=== PATIENT | male | born 1940 | race Caucasian/White ===

== ENCOUNTER 2022-02-17 22:19 | Inpatient (IN) | payer MEDICARE ==
[~2022-02-17] VITALS: Ht 175.3 cm; Wt 65.9 kg
[2022-02-17 22:48] LABS: BASOPHIL 0.8 % (0-2); EOSINOPHIL 1.5 % (0-7); HCT 44.2 % (42.0-52.0); HGB 14.7 g/dl (13.2-18.0); LYMPHOCYTE 28.1 % (15-48); MCH 30.4 pg (25.0-31.0); MCHC 33.3 g/dL (32.0-36.0); MCV 91.5 fL (78.0-100.0); MPV 10.1 fL (6.0-9.5); NEUTROPHIL 62.1 % (41-80); NRBC 0; PLT 199 K/uL (150-400); RBC 4.83 M/uL (4.70-6.00); RDW 13.2 % (11.5-14.0); WBC 14.4 K/uL (4.0-10.5)
[2022-02-17 22:53] LABS: INR 0.98 (0.9-1.2); PROTHROMBIN TIME 12.7 SECONDS (11.9-13.9); PTT 26.4 SECONDS (24.9-34.6)
[2022-02-17 23:05] LABS: ALBUMIN 3.9 g/dL (3.4-5.0); BILIRUBIN - TOTAL 0.6 mg/dL (0.2-1.0); BUN/CREAT RATIO (CALC) 17.2 RATIO; CREATININE 0.99 mg/dL (0.67-1.17); GLOBULIN (CALCULATION) 3.7 g/dL; MAGNESIUM 2.2 mg/dL (1.8-2.4); TOTAL PROTEIN 7.6 g/dL (6.4-8.2)
[2022-02-18 01:55] LABS: CORONAVIRUS 2019 SARS-COV-2 NEGATIVE (NEGATIVE)
[2022-02-18 02:34] LABS: INFLUENZA A NAA NEGATIVE (NEGATIVE)
[2022-02-18] MEDS ORDERED: BACLOFEN 10MG T10 MG PO (03:02)
[2022-02-18] MEDS ORDERED: SYMBICORT 80-10.2 GM INH (03:02)
[2022-02-18] MEDS ORDERED: ASPIRIN EC81 MG PO (03:03)
[2022-02-18 06:10] LABS: HCT 39.3 % (42.0-52.0); HGB 12.9 g/dl (13.2-18.0); MCH 30.4 pg (25.0-31.0); MCHC 32.8 g/dL (32.0-36.0); MCV 92.7 fL (78.0-100.0); MPV 10.4 fL (6.0-9.5); RBC 4.24 M/uL (4.70-6.00); RDW 13.2 % (11.5-14.0); WBC 8.8 K/uL (4.0-10.5)
[2022-02-18 06:39] LABS: BUN/CREAT RATIO (CALC) 17.6 RATIO; CREATININE 0.91 mg/dL (0.67-1.17); POTASSIUM 3.7 mmol/L (3.5-5.1)
[2022-02-18 07:06] LABS: BILIRUBIN NEGATIVE (NEGATIVE); BLOOD NEGATIVE Ery/uL (NEGATIVE); CLARITY CLEAR (CLEAR); COLOR YELLOW (YELLOW); GLUCOSE (U) NORMAL (NORMAL); LEUKOCYTES NEGATIVE Leu/uL (NEGATIVE); NITRITE NEGATIVE (NEGATIVE); PROTEIN NEGATIVE (NEGATIVE); SPECIFIC GRAVITY 1.015 (1.001-1.030); UROBILINOGEN 0.2 mg/dL (0.2-1.0)
--- NOTE | 2022-02-18 13:23 | NUR ---
02/18/22 Mr. Melendez lives at home with his spouse in a 2 bedroom mobile home. Their rent recently was raised from $500 - to $650.00. Mr. Melendez was not interested in a list of subsidized rent apartments because they have a pool and swingset in the backyard for thheir 6 grandchildren. - They are receiving $20.00 in foodstamps and are hopeful that they will received an increase with the raise in rent. Mr. Melendez is familiar with [employer] and financial community resources. - He has a PCP, 02 at 2 L ([facility]), portable tank, rollator and cane. - Ms. Melendez drives for the couple and manages the household. - Will monitor for discharge planning needs.
--- NOTE | 2022-02-19 01:43 | NUR ---
LATE ENTRY 0000 NO TIDALING NOTED TO CHEST TUBE, SANGIUNOUS DRAINAGE NOTED IN TUBE, CHEST TUBE AT 18CM. BREATH SOUNDS DIMINISHED ON LEFT SIDE. NO SOA, O2 SAT 97%, PT STATES IS MILDLY UNCOMFORTABLE. ROBERT OCHOA NOTIEFIED, NO ORDERS AT THIS TIME
[2022-02-19 07:03] LABS: BASOPHIL 0.2 % (0-2); EOSINOPHIL 0 % (0-7); HCT 33.1 % (42.0-52.0); HGB 11.1 g/dl (13.2-18.0); LYMPHOCYTE 6.4 % (15-48); MCH 30.6 pg (25.0-31.0); MCHC 33.5 g/dL (32.0-36.0); MCV 91.2 fL (78.0-100.0); MONOCYTE 3.5 % (0-12); MPV 10.6 fL (6.0-9.5); NEUTROPHIL 89.4 % (41-80); NRBC 0; PLT 143 K/uL (150-400); RBC 3.63 M/uL (4.70-6.00); RDW 13.1 % (11.5-14.0); WBC 13.3 K/uL (4.0-10.5)
[2022-02-19 07:38] LABS: BUN/CREAT RATIO (CALC) 28.2 RATIO; C-REACTIVE PROTEIN 0.2 mg/dL (<=0.90); CREATININE 0.85 mg/dL (0.67-1.17); MAGNESIUM 2.1 mg/dL (1.8-2.4); POTASSIUM 4.6 mmol/L (3.5-5.1)
--- NOTE | 2022-02-19 14:44 | NUR ---
02/19/22 Mr. Melendez reported to be having difficulty getting his 02 from [facility] since his insurance changed. Gladis at [facility] reports to have received updated qualifications from his PCP. His 02 has been billed to the insurance comapny. [facility] reports the problems to have been resolved.
[2022-02-20 07:16] LABS: BASOPHIL 0.1 % (0-2); EOSINOPHIL 0.1 % (0-7); HCT 31.1 % (42.0-52.0); HGB 10.5 g/dl (13.2-18.0); LYMPHOCYTE 11.4 % (15-48); MCH 30.6 pg (25.0-31.0); MCHC 33.8 g/dL (32.0-36.0); MCV 90.7 fL (78.0-100.0); MONOCYTE 5.2 % (0-12); MPV 10.2 fL (6.0-9.5); NEUTROPHIL 82.6 % (41-80); NRBC 0; PLT 153 K/uL (150-400); RBC 3.43 M/uL (4.70-6.00); RDW 13.1 % (11.5-14.0); WBC 11.4 K/uL (4.0-10.5)
[2022-02-20 07:41] LABS: BUN/CREAT RATIO (CALC) 33.7 RATIO; CREATININE 0.86 mg/dL (0.67-1.17); POTASSIUM 4.4 mmol/L (3.5-5.1)
[2022-02-21 07:09] LABS: BASOPHIL 0.3 % (0-2); EOSINOPHIL 0.7 % (0-7); HCT 35.3 % (42.0-52.0); HGB 11.6 g/dl (13.2-18.0); LYMPHOCYTE 17.7 % (15-48); MCH 30.6 pg (25.0-31.0); MCHC 32.9 g/dL (32.0-36.0); MCV 93.1 fL (78.0-100.0); MONOCYTE 7.8 % (0-12); MPV 10.5 fL (6.0-9.5); NEUTROPHIL 72.6 % (41-80); NRBC 0; PLT 153 K/uL (150-400); RBC 3.79 M/uL (4.70-6.00); RDW 13.3 % (11.5-14.0); RETICULOCYTE COUNT 2.6 % (1.0-2.0); WBC 9.8 K/uL (4.0-10.5)
[2022-02-21 07:22] LABS: IRON % SATURATION 39.2 %SAT (20-50)
[2022-02-21 07:57] LABS: CREATININE 0.87 mg/dL (0.67-1.17); FOLIC ACID (SERUM) 5.2 ng/mL (8.6-58.9); MAGNESIUM 2.1 mg/dL (1.8-2.4); PHOSPHORUS 3.4 mg/dL (2.6-4.7); POTASSIUM 4.1 mmol/L (3.5-5.1)
--- NOTE | 2022-02-21 14:49 | NUR ---
PATIENT TURNED IN BED TO GET STRAIGHT TO ATTEMPT TO SIT UP IN CHAIR, SHORTLY AFTER THIS HR 160'S ST, AUSCULTATED RACING HEART RATE FOR SHORT PERIOD THEN RETURNED TO NORMAL RATE AND RHYTHM, MONITORS CUT OFF FOR A BIT AND DURING THIS TIME WAS PUT ON TELEMON TO MONITOR DURING THIS TIME. RETURN TO NSR ON OWM. NOTIFIED AND ASSESSED. WILL HOLD ON GETTING PATIENT OOB AT THIS TIME
[2022-02-21] MEDS ORDERED: DUONEB 2.5-0.5M1 AMP NEB (17:23)
[2022-02-21] MEDS ORDERED: NEBULIZER UNIT NEB (17:23)
== END 2022-02-21 18:08 | disposition home or self-care (01) | DRG 199 ==
LOC: FER 22:19 → FTCU 02-18 01:21
PROVIDERS: Internal Medicine; Nurse Practitioner Acute Care; ADMIT Internal Medicine
PROC: 0W9B30Z Drainage of Left Pleural Cavity with Drainage Device, Percutaneous Approach (ICD-10-PCS; principal; 2022-02-17)
DX: J93.83 Other pneumothorax (principal); I50.33 Acute on chronic diastolic (congestive) heart failure; J96.21 Acute and chronic respiratory failure with hypoxia; J96.22 Acute and chronic respiratory failure with hypercapnia; R65.11 Systemic inflammatory response syndrome (SIRS) of non-infectious origin with acute organ dysfunction; J43.9 Emphysema, unspecified; I16.0 Hypertensive urgency; I11.0 Hypertensive heart disease with heart failure; Z20.822 Contact with and (suspected) exposure to COVID-19; R91.8 Other nonspecific abnormal finding of lung field; I25.10 Atherosclerotic heart disease of native coronary artery without angina pectoris; Z99.81 Dependence on supplemental oxygen; Z95.1 Presence of aortocoronary bypass graft; Z90.49 Acquired absence of other specified parts of digestive tract; Z82.3 Family history of stroke; Z88.5 Allergy status to narcotic agent; Z79.899 Other long term (current) drug therapy; Z87.891 Personal history of nicotine dependence
CPT/HCPCS: 36415; 36600; 71045; 71250; 80048; 80053; 81003; 82271; 82607; 82746; 82803; 83540; 83550; 83605; 83735; 83880; 84100; 84145; 84484; 85025; 85610; 85730; 86140; 86850; 86900; 86901; 87040; 93005; 94010; 94640; 94664; 94762; 96365; 96375; J1170; J1940; J2001; J2250; J2270; J2405; J2543; J2920; J3010; J7030; U0002